=== PATIENT | male | born 1945 | race Caucasian/White ===

== ENCOUNTER 2018-01-23 09:39 | Emergency (ER) | payer MEDICARE, OTHER, SELFPAY ==
[2018-01-23 10:00] VITALS: BP 168/90; PULSE 80; RESP 13; TEMP 36.2; O2SAT 99
--- NOTE | 2018-01-23 12:20 | ED.BACK ---
HPI - Back Pain/Injury <JUVE Quezada - Last Filed: 01/23/18 19:48> General Chief Complaint: Skin/Abscess/Foreign Body Stated Complaint: LUMP AND PAIN OVER LEFT HIP Time Seen by Provider: 01/23/18 12:05 Source: patient Mode of arrival: ambulatory History of Present Illness HPI Narrative: Patient presents with left back and hip pain. He states has been going on for several days. He has taken occasional ibuprofen for it. He took 2 Tylenol 3 for it. He states that he has a broken his ???entire back from his neck all the way down??? and has chronic back pain. However this pain is centralized over his lower back on his left side, which she states is new for him. He also complains of left shoulder pain, but that is not his chief complaint today. He denies any fevers, numbness, tingling, incontinence, saddle anesthesia. He states his pain radiates down to his bottom. Denies any other radiation. Took a lyrica this morning. Denies any urinary symptoms including dysuria, urgency, frequency. He denies fevers. Patient's thought process is noted to be disorganized and thus a difficult historian. He even complains of concern for his heart given back pain. He has history of bypass. He denies any chest pain, shortness of breath, palpitations or swelling. States he is most concerned about a bump on his left hip. Related Data Home Medications Medication Instructions Recorded Confirmed carvedilol [Coreg] 6.25 mg PO BID #60 tab 04/18/16 01/23/18 rosuvastatin [Crestor] 1 tab PO DAILY #0 04/18/16 01/23/18 insulin aspart U-100 [Novolog 1 dose CONTINUOUS SUBCUTANEOUS 01/23/18 01/23/18 U-100 Insulin aspart] INFUSION DIRECTED MDD 100 units losartan 1 tab PO DAILY 01/23/18 01/23/18 mometasone 1 applic TOPICAL DIRECTED 01/23/18 01/23/18 Previous Rx's Medication Instructions Recorded methocarbamol [Robaxin] 500 mg PO Q6H PRN #20 tab NS 01/23/18 Allergies Allergy/AdvReac Type Severity Reaction Status Date / Time No Known Drug Allergies Allergy Verified 01/23/18 13:44 Review of Systems <JUVE Quezada - Last Filed: 01/23/18 19:48> Review of Systems GENERAL: See HPI HEENT: Denies sinus pain, ear pain, sore throat, difficulty swallowing, dizziness. RESPIRATORY: Denies dyspnea, cough, wheezing, hemoptysis, sputum. CARDIOVASCULAR: See HPI GASTROINTESTINAL: Denies nausea, vomiting, abdominal pain, diarrhea, constipation, melena. : Denies dysuria, frequency, incontinence, hematuria, urinary retention. MUSCULOSKELETAL: See HPI SKIN: Denies rash, skin lesions, or other NEUROLOGIC: See HPI PSYCHIATRIC: No concerning psychosocial issues. 12 point review of systems is negative except for those stated above Exam <Holli Montanez [facility]- - Last Filed: 01/23/18 19:48> Narrative Exam Narrative: GENERAL: This is a well-nourished, well-developed patient, no distress sitting on exam table. HEAD: Atraumatic. Normocephalic. No temporal or scalp tenderness. EYES: Pupils equal round and reactive. Extraocular motions intact. No scleral icterus. No injection or drainage. ENT: Nose without bleeding, purulent drainage or septal hematoma. Throat without erythema, tonsillar hypertrophy or exudate. Uvula midline. Airway patent. NECK: Trachea midline. No JVD or lymphadenopathy. Supple, nontender, no meningeal signs. CARDIOVASCULAR: Regular rate and rhythm without murmurs, gallops, or rubs. RESPIRATORY: Clear to auscultation. Breath sounds equal bilaterally. No wheezes, rales, or rhonchi. GASTROINTESTINAL: Abdomen soft, non-tender, nondistended. No hepato-splenomegaly, or palpable masses. No guarding. EXTREMITIES: No clubbing, cyanosis, or edema. No joint tenderness, effusion, or edema noted. Strength equal upper and lower extremities bilaterally. Radial reflexes intact, patellar reflexes intact. BACK: No C-spine or spinal pain to palpation. No step-offs or deformities palpated. Some pain on palpation of left paraspinal muscles in the lumbar region. No palpable deformity to back or pelvis. NEURO: AOx3. SKIN: No rash or erythema. No erythema ecchymosis or rash on back or pelvis. Initial Vital Signs Initial Vital Signs: Vital Signs Temperature 97.1 F L 01/23/18 10:00 Pulse Rate 80 01/23/18 10:00 Respiratory Rate 13 01/23/18 10:00 Blood Pressure 168/90 H 01/23/18 10:00 Pulse Oximetry 99 01/23/18 10:00 <Shelia Gonzales DO - Last Filed: 01/24/18 07:25> Initial Vital Signs Initial Vital Signs: Vital Signs Temperature 97.1 F L 01/23/18 10:00 Pulse Rate 80 01/23/18 10:00 Respiratory Rate 13 01/23/18 10:00 Blood Pressure 168/90 H 01/23/18 10:00 Pulse Oximetry 99 01/23/18 10:00 Course <[facility] - Last Filed: 01/23/18 19:48> Hospital Course: Patient presents complaining of back and hip pain on left side. He is concerned about a bump that he felt on his left hip. An EKG was done due to his history of ACS and his back pain. He came back within normal limits. Imaging was taken of his lumbar spine and his pelvis. No acute fracture was found. He was medicated for pain with Toradol and with Robaxin. He had no questions or concerns upon discharge. Discussed at length with patient return precautions of numbness, tingling, saddle anesthesia or incontinence. Orders Ordered: Discontinued Medications Ketorolac Tromethamine (Toradol) 30 mg IM NOW ONE Stop: 01/23/18 13:35 Last Admin: 01/23/18 13:46 Dose: 30 mg Methocarbamol (Robaxin) 750 mg PO NOW ONE Stop: 01/23/18 13:35 Last Admin: 01/23/18 13:48 Dose: Not Given Methocarbamol (Robaxin) 750 mg PO NOW ONE Stop: 01/23/18 13:46 Last Admin: 01/23/18 13:47 Dose: 750 mg Vital Signs - 8 hr 01/23/18 14:14 Pulse Rate 80 Respiratory Rate 18 Blood Pressure 154/95 H Pulse Oximetry 98 <Shelia Gonzales DO - Last Filed: 01/24/18 07:25> Orders Ordered: Discontinued Medications Ketorolac Tromethamine (Toradol) 30 mg IM NOW ONE Stop: 01/23/18 13:35 Last Admin: 01/23/18 13:46 Dose: 30 mg Methocarbamol (Robaxin) 750 mg PO NOW ONE Stop: 01/23/18 13:35 Last Admin: 01/23/18 13:48 Dose: Not Given Methocarbamol (Robaxin) 750 mg PO NOW ONE Stop: 01/23/18 13:46 Last Admin: 01/23/18 13:47 Dose: 750 mg Vital Signs - 8 hr 01/23/18 14:14 Pulse Rate 80 Respiratory Rate 18 Blood Pressure 154/95 H Pulse Oximetry 98 MDM - Back Pain/Injury <JUVE Quezada - Last Filed: 01/23/18 19:48> Imaging Data lumbar xray: Radiologist's impression: [address] [address] XRay Report Signed Patient: Darren iSlver MR#: [id number] : 1945 Acct:[id number] Age/Sex: 72 / M Date of Service: 01/23/18 Loc: ED Accession Number: [id number] Procedure: XR lumbar spine 2-3V Ordering Provider: Holli Montanez PROCEDURE: XR LUMBAR SPINE 2-3V INDICATIONS: 72-year-old male with low back pain on palpation. TECHNIQUE: 3 views of the lumbar spine were acquired. COMPARISON: [facility], CT, ABDOMEN/PELVIS WITH CONTRAST, 04/18/2016, 15:01. FINDINGS: Bones: 5 [id number] vertebrae are present. There is lower lumbar spine levoscoliosis. Nonacute T12 anterior wedge compression fracture is unchanged, with up to 73% height loss. No new vertebral body compression fractures. There is lower lumbar spine disc and facet joint degeneration. No suspicious bony lesions. Soft tissues: Overlying bowel gas pattern is normal. No suspicious soft tissue calcifications. There is moderate aortoiliac atherosclerosis. IMPRESSION: 1. Nonacute T12 anterior wedge compression fracture is unchanged since 2016, with severe height loss. 2. Lower lumbar spine disc and facet joint degeneration. Dictated by: Terry Stanton M.D. on 01/23/2018 at 13:10 Approved by: Terry Stanton M.D. on 01/23/2018 at 13:13 pelvis xray : Radiologist's impression: [address] [address] XRay Report Signed Patient: Darren Silver MR#: [id number] : 1945 Acct:[id number] Age/Sex: 72 / M Date of Service: 01/23/18 Loc: ED Accession Number: [id number] Procedure: XR pelvis 1-2V Ordering Provider: Holli Montanez PROCEDURE: XR PELVIS 1-2V INDICATIONS: 72 year-old male with left pelvic pain on palpation. TECHNIQUE: One view(s) of the pelvis acquired. COMPARISON: None. FINDINGS: Bones: No fractures or dislocations. No suspicious bony lesions. There is lower lumbar spine disc degeneration. No hip joint degeneration. Soft tissues: Right inguinal region surgical clips are present. Visualized bowel gas pattern is normal. No suspicious soft tissue calcifications. There is bilateral femoral atherosclerosis. IMPRESSION: No acute bony injuries of the pelvic ring. Dictated by: Terry Stanton M.D. on 01/23/2018 at 13:09 Approved by: Terry Stanton M.D. on 01/23/2018 at 13:10 ECG Data Attestation: I personally reviewed and interpreted this ECG as follows: Interpretation: Sinus rhythm. Heart rate 67. MD 205. No ST abnormalities. MDM Narrative Medical decision making narrative: Patient presented with back pain and concern of a bump on the back of his pelvis. His EKG was done in order to rule out ACS given his history and back pain. Came back within normal limits. He had normal x-rays of his lumbar spine as well as his pelvis. He did not complain of chest pain shortness of breath, fever. He was medicated with Robaxin as well as Toradol in the emergency department. I gave him a prescription of Robaxin. He had no questions or concerns upon discharge. I discussed at length with patient return precautions for numbness, tingling, weakness, incontinence, saddle anesthesia. <Shelia Gonzales, - Last Filed: 01/24/18 07:25> ECG Data Attestation: I personally reviewed and interpreted this ECG as follows: Prior ECG tracings: not available for review Interpretation: Normal sinus rhythm rate [address] changes no priors to compare Q-waves noted in lead 3 and AVF nonpathologic Discharge Plan Departure Patient Disposition: Home, Self-Care Clinical Impression: Back pain Discharge Date/Time: 01/23/18 14:15 Interventions: ED Discharge Assessment Last Done: 01/23/18 14:14 Instructions: DI for Low Back Pain, Activity May Be Better then Rest for Low Back Pain Recovery, DI for Thoracic Back Pain Activity Restrictions/Additional Instructions: We have given you medication for your back pain. I want you to continue conservative measures including ice, heat, rest, [id number]-[id number] medications as able. Please do not take ibuprofen for 6-8 hours after the pain injection that we gave you here in the emergency department. I would like you to follow up with your primary care provider. Come back to the emergency department for any new numbness, tingling, incontinence or saddle anesthesia out which is numbness where you sit on a horse. Please remember that we also gave you a muscle relaxer here in the emergency department, so please do not take your prescription too soon. Prescriptions: New methocarbamol [Robaxin] 500 mg tablet 500 mg PO Q6H PRN (Reason: muscle spasm ) Qty: 20 RF: 0 No Action carvedilol [Coreg] 6.25 MG tablet 6.25 mg PO BID Qty: 60 RF: 0 rosuvastatin [Crestor] 40 mg Tablet 1 tab PO DAILY Qty: 0 RF: 0 insulin aspart U-100 [Novolog U-100 Insulin aspart] 100 unit/mL solution 1 dose Continuous Subcutaneous Infusion DIRECTED MDD 100 units RF: 0 losartan 25 mg tablet 1 tab PO DAILY RF: 0 mometasone 0.1 % cream 1 applic Topical DIRECTED RF: 0 <Shelia Gonzales DO - Last Filed: 01/24/18 07:25> [facility]abil Attestation: I was immediately available in the department for consultation. Documentation has been reviewed. I agree with assessment and plan.
--- NOTE | 2018-01-23 12:23 | ED_ITS ---
HPI - Back Pain/Injury <JUVE Quezada - Last Filed: 01/23/18 19:48> General Chief Complaint: Skin/Abscess/Foreign Body Stated Complaint: LUMP AND PAIN OVER LEFT HIP Time Seen by Provider: 01/23/18 12:05 Source: patient Mode of arrival: ambulatory History of Present Illness HPI Narrative: Patient presents with left back and hip pain. He states has been going on for several days. He has taken occasional ibuprofen for it. He took 2 Tylenol 3 for it. He states that he has a broken his ?entire back from his neck all the way down? and has chronic back pain. However this pain is centralized over his lower back on his left side, which she states is new for him. He also complains of left shoulder pain, but that is not his chief complaint today. He denies any fevers, numbness, tingling, incontinence, saddle anesthesia. He states his pain radiates down to his bottom. Denies any other radiation. Took a lyrica this morning. Denies any urinary symptoms including dysuria, urgency, frequency. He denies fevers. Patient's thought process is noted to be disorganized and thus a difficult historian. He even complains of concern for his heart given back pain. He has history of bypass. He denies any chest pain, shortness of breath, palpitations or swelling. States he is most concerned about a bump on his left hip. Related Data Home Medications Medication Instructions Recorded Confirmed carvedilol [Coreg] 6.25 mg PO BID #60 tab 04/18/16 01/23/18 rosuvastatin [Crestor] 1 tab PO DAILY #0 04/18/16 01/23/18 insulin aspart U-100 [Novolog 1 dose CONTINUOUS SUBCUTANEOUS 01/23/18 01/23/18 U-100 Insulin aspart] INFUSION DIRECTED MDD 100 units losartan 1 tab PO DAILY 01/23/18 01/23/18 mometasone 1 applic TOPICAL DIRECTED 01/23/18 01/23/18 Previous Rx's Medication Instructions Recorded methocarbamol [Robaxin] 500 mg PO Q6H PRN #20 tab NS 01/23/18 Allergies Allergy/AdvReac Type Severity Reaction Status Date / Time No Known Drug Allergies Allergy Verified 01/23/18 13:44 Review of Systems <JUVE Quezada - Last Filed: 01/23/18 19:48> Review of Systems GENERAL: See HPI HEENT: Denies sinus pain, ear pain, sore throat, difficulty swallowing, dizziness. RESPIRATORY: Denies dyspnea, cough, wheezing, hemoptysis, sputum. CARDIOVASCULAR: See HPI GASTROINTESTINAL: Denies nausea, vomiting, abdominal pain, diarrhea, constipation, melena. : Denies dysuria, frequency, incontinence, hematuria, urinary retention. MUSCULOSKELETAL: See HPI SKIN: Denies rash, skin lesions, or other NEUROLOGIC: See HPI PSYCHIATRIC: No concerning psychosocial issues. 12 point review of systems is negative except for those stated above Exam <Holli Montanez, [facility] - Last Filed: 01/23/18 19:48> Narrative Exam Narrative: GENERAL: This is a well-nourished, well-developed patient, no distress sitting on exam table. HEAD: Atraumatic. Normocephalic. No temporal or scalp tenderness. EYES: Pupils equal round and reactive. Extraocular motions intact. No scleral icterus. No injection or drainage. ENT: Nose without bleeding, purulent drainage or septal hematoma. Throat without erythema, tonsillar hypertrophy or exudate. Uvula midline. Airway patent. NECK: Trachea midline. No JVD or lymphadenopathy. Supple, nontender, no meningeal signs. CARDIOVASCULAR: Regular rate and rhythm without murmurs, gallops, or rubs. RESPIRATORY: Clear to auscultation. Breath sounds equal bilaterally. No wheezes , rales, or rhonchi. GASTROINTESTINAL: Abdomen soft, non-tender, nondistended. No hepato-splenomegaly , or palpable masses. No guarding. EXTREMITIES: No clubbing, cyanosis, or edema. No joint tenderness, effusion, or edema noted. Strength equal upper and lower extremities bilaterally. Radial reflexes intact, patellar reflexes intact. BACK: No C-spine or spinal pain to palpation. No step-offs or deformities palpated. Some pain on palpation of left paraspinal muscles in the lumbar region. No palpable deformity to back or pelvis. NEURO: AOx3. SKIN: No rash or erythema. No erythema ecchymosis or rash on back or pelvis. Initial Vital Signs Initial Vital Signs: Vital Signs Temperature 97.1 F L 01/23/18 10:00 Pulse Rate 80 01/23/18 10:00 Respiratory Rate 13 01/23/18 10:00 Blood Pressure 168/90 H 01/23/18 10:00 Pulse Oximetry 99 01/23/18 10:00 <Shelia Gonzales DO - Last Filed: 01/24/18 07:25> Initial Vital Signs Initial Vital Signs: Vital Signs Temperature 97.1 F L 01/23/18 10:00 Pulse Rate 80 01/23/18 10:00 Respiratory Rate 13 01/23/18 10:00 Blood Pressure 168/90 H 01/23/18 10:00 Pulse Oximetry 99 01/23/18 10:00 Course <Holli [place] Montanez-[facility] - Last Filed: 01/23/18 19:48> Hospital Course: Patient presents complaining of back and hip pain on left side. He is concerned about a bump that he felt on his left hip. An EKG was done due to his history of ACS and his back pain. He came back within normal limits. Imaging was taken of his lumbar spine and his pelvis. No acute fracture was found. He was medicated for pain with Toradol and with Robaxin. He had no questions or concerns upon discharge. Discussed at length with patient return precautions of numbness, tingling, saddle anesthesia or incontinence. Orders Ordered: Discontinued Medications Ketorolac Tromethamine (Toradol) 30 mg IM NOW ONE Stop: 01/23/18 13:35 Last Admin: 01/23/18 13:46 Dose: 30 mg Methocarbamol (Robaxin) 750 mg PO NOW ONE Stop: 01/23/18 13:35 Last Admin: 01/23/18 13:48 Dose: Not Given Methocarbamol (Robaxin) 750 mg PO NOW ONE Stop: 01/23/18 13:46 Last Admin: 01/23/18 13:47 Dose: 750 mg Vital Signs - 8 hr 01/23/18 14:14 Pulse Rate 80 Respiratory Rate 18 Blood Pressure 154/95 H Pulse Oximetry 98 <Shelia Gonzales DO - Last Filed: 01/24/18 07:25> Orders Ordered: Discontinued Medications Ketorolac Tromethamine (Toradol) 30 mg IM NOW ONE Stop: 01/23/18 13:35 Last Admin: 01/23/18 13:46 Dose: 30 mg Methocarbamol (Robaxin) 750 mg PO NOW ONE Stop: 01/23/18 13:35 Last Admin: 01/23/18 13:48 Dose: Not Given Methocarbamol (Robaxin) 750 mg PO NOW ONE Stop: 01/23/18 13:46 Last Admin: 01/23/18 13:47 Dose: 750 mg Vital Signs - 8 hr 01/23/18 14:14 Pulse Rate 80 Respiratory Rate 18 Blood Pressure 154/95 H Pulse Oximetry 98 MDM - Back Pain/Injury <JUVE Quezada - Last Filed: 01/23/18 19:48> Imaging Data lumbar xray: Radiologist's impression: [address] [address] XRay Report Signed Patient: Darren Silver MR#: [id number] : 1945 Acct:[id number] Age/Sex: 72 / M Date of Service: 01/23/18 Loc: ED Accession Number: [id number] Procedure: XR lumbar spine 2-3V Ordering Provider: Holli Montanez PROCEDURE: XR LUMBAR SPINE 2-3V INDICATIONS: 72-year-old male with low back pain on palpation. TECHNIQUE: 3 views of the lumbar spine were acquired. COMPARISON: [facility], CT, ABDOMEN/PELVIS WITH CONTRAST, 04/18/2016, 15: 01. FINDINGS: Bones: 5 [id number]-[id number] vertebrae are present. There is lower lumbar spine levoscoliosis. Nonacute T12 anterior wedge compression fracture is unchanged, with up to 73% height loss. No new vertebral body compression fractures. There is lower lumbar spine disc and facet joint degeneration. No suspicious bony lesions. Soft tissues: Overlying bowel gas pattern is normal. No suspicious soft tissue calcifications. There is moderate aortoiliac atherosclerosis. IMPRESSION: 1. Nonacute T12 anterior wedge compression fracture is unchanged since 2016, with severe height loss. 2. Lower lumbar spine disc and facet joint degeneration. Dictated by: Terry Stanton M.D. on 01/23/2018 at 13:10 Approved by: Terry Stanton M.D. on 01/23/2018 at 13:13 pelvis xray : Radiologist's impression: [address] [address] XRay Report Signed Patient: Darren Silver MR#: [id number] : 1945 Acct:[id number] Age/Sex: 72 / M Date of Service: 01/23/18 Loc: ED Accession Number: [id number] Procedure: XR pelvis 1-2V Ordering Provider: Holli Montanez PROCEDURE: XR PELVIS 1-2V INDICATIONS: 72 year-old male with left pelvic pain on palpation. TECHNIQUE: One view(s) of the pelvis acquired. COMPARISON: None. FINDINGS: Bones: No fractures or dislocations. No suspicious bony lesions. There is lower lumbar spine disc degeneration. No hip joint degeneration. Soft tissues: Right inguinal region surgical clips are present. Visualized bowel gas pattern is normal. No suspicious soft tissue calcifications. There is bilateral femoral atherosclerosis. IMPRESSION: No acute bony injuries of the pelvic ring. Dictated by: Terry Stanton M.D. on 01/23/2018 at 13:09 Approved by: Terry Stanton M.D. on 01/23/2018 at 13:10 ECG Data Attestation: I personally reviewed and interpreted this ECG as follows: Interpretation: Sinus rhythm. Heart rate 67. [place] 205. No ST abnormalities. MDM Narrative Medical decision making narrative: Patient presented with back pain and concern of a bump on the back of his pelvis. His EKG was done in order to rule out ACS given his history and back pain. Came back within normal limits. He had normal x -rays of his lumbar spine as well as his pelvis. He did not complain of chest pain shortness of breath, fever. He was medicated with Robaxin as well as Toradol in the emergency department. I gave him a prescription of Robaxin. He had no questions or concerns upon discharge. I discussed at length with patient return precautions for numbness, tingling, weakness, incontinence, saddle anesthesia. <Shelia Gonzales, DO - Last Filed: 01/24/18 07:25> ECG Data Attestation: I personally reviewed and interpreted this ECG as follows: Prior ECG tracings: not available for review Interpretation: Normal sinus rhythm rate [address] changes no priors to compare Q-waves noted in lead 3 and AVF nonpathologic Discharge Plan Departure Patient Disposition: Home, Self-Care Clinical Impression: Back pain Discharge Date/Time: 01/23/18 14:15 Interventions: ED Discharge Assessment Last Done: 01/23/18 14:14 Instructions: DI for Low Back Pain, Activity May Be Better then Rest for Low Back Pain Recovery, DI for Thoracic Back Pain Activity Restrictions/Additional Instructions: We have given you medication for your back pain. I want you to continue conservative measures including ice, heat, rest, msgs-hgb-cutzvkp medications as able. Please do not take ibuprofen for 6-8 hours after the pain injection that we gave you here in the emergency department. I would like you to follow up with your primary care provider. Come back to the emergency department for any new numbness, tingling, incontinence or saddle anesthesia out which is numbness where you sit on a horse. Please remember that we also gave you a muscle relaxer here in the emergency department, so please do not take your prescription too soon. Prescriptions: New methocarbamol [Robaxin] 500 mg tablet 500 mg PO Q6H PRN (Reason: muscle spasm ) Qty: 20 RF: 0 No Action carvedilol [Coreg] 6.25 MG tablet 6.25 mg PO BID Qty: 60 RF: 0 rosuvastatin [Crestor] 40 mg Tablet 1 tab PO DAILY Qty: 0 RF: 0 insulin aspart U-100 [Novolog U-100 Insulin aspart] 100 unit/mL solution 1 dose Continuous Subcutaneous Infusion DIRECTED MDD 100 units RF: 0 losartan 25 mg tablet 1 tab PO DAILY RF: 0 mometasone 0.1 % cream 1 applic Topical DIRECTED RF: 0 <Shelia Gonzales DO - Last Filed: 01/24/18 07:25> [facility] Nabil Attestation: I was immediately available in the department for consultation. Documentation has been reviewed. I agree with assessment and plan.
[2018-01-23] MEDS: KETOROLAC 60 MG/2 ML VIAL 30 MG IM (13:46)
[2018-01-23] MEDS: METHOCARBAMOL 500 MG TABLET 750 MG PO (13:47)
[2018-01-23 14:14] VITALS: BP 154/95; PULSE 80; RESP 18; O2SAT 98
== END 2018-01-23 14:15 | disposition home or self-care (01) ==
PROVIDERS: Emergency Provider Nurse Practitioner Family; Family Provider Family Medicine; PCP Family Medicine
DX: M54.9 Dorsalgia, unspecified (principal); Z86.79 Personal history of other diseases of the circulatory system
CPT/HCPCS: 72100; 72170; 81003; 93005; 96372; 99282; 99285; J1885

== ENCOUNTER 2018-01-24 15:44 | Emergency (ER) | payer MEDICARE, OTHER, SELFPAY ==
[2018-01-24 16:16] VITALS: BP 140/85; PULSE 76; RESP 18; TEMP 37.1; O2SAT 99; BMI 28.8
--- NOTE | 2018-01-24 16:17 | ED.MALEGU ---
HPI - Male Genitourinary <JEREMIAS Bauer - Last Filed: 01/24/18 22:33> General Chief complaint: Urogenital-Male Stated complaint: left side lower back pain Time Seen by Provider: 01/24/18 16:17 History of Present Illness HPI Narrative: 72-year-old male here for complaint of pain into his left back area. He reports he has had this pain for the last 4 days. He was seen in the emergency room yesterday and had x-rays of his lower back and pelvis area and was negative for any acute findings. His pain has been to bilateral sides over the past few days. He was prescribed Robaxin and states that it helped limit the pain to his left side however he still having pain there. He denies any urinary symptoms. No fevers no chills. No nausea or vomiting. He denies any blood in his urine. He does state that he has a history of having kidney stones in the past. Related Data Home Medications Medication Instructions Recorded Confirmed carvedilol [Coreg] 6.25 mg PO BID #60 tab 04/18/16 01/24/18 losartan 1 tab PO DAILY 01/23/18 01/24/18 insulin aspart U-100 [Novolog 1 dose CONTINUOUS SUBCUTANEOUS 01/24/18 01/24/18 U-100 Insulin aspart] INFUSION DIRECTED MDD 100 units mometasone 1 applic TOPICAL DAILY PRN 01/24/18 01/24/18 rosuvastatin 20 mg PO DAILY 01/24/18 01/24/18 Previous Rx's Medication Instructions Recorded methocarbamol [Robaxin] 500 mg PO Q6H PRN #20 tab NS 01/23/18 Allergies Allergy/AdvReac Type Severity Reaction Status Date / Time No Known Drug Allergies Allergy Verified 01/23/18 13:44 Review of Systems <JEREMIAS Bauer - Last Filed: 01/24/18 22:33> Constitutional Denies chills, Denies fever(s), Denies lethargy and Denies weakness Eyes Denies change in vision, Denies eye discharge, Denies irritation and Denies loss of vision ENT Ears, Nose, Mouth, and Throat: Denies change in voice, Denies neck pain and Denies sore throat Cardiovascular Denies chest pain, Denies irregular heart rhythm, Denies lightheadedness, Denies palpitations, Denies dyspnea, Denies dyspnea on exertion and Denies orthopnea Respiratory Denies cough, Denies dyspnea, Denies dyspnea on exertion and Denies wheezing Gastrointestinal Gastrointestinal: Denies abdominal pain, Denies change in bowel habits, Denies diarrhea, Denies nausea and Denies vomiting Musculoskeletal Reports back pain and Denies neck pain Integumentary/Breasts Denies pruritus, Denies erythema, Denies rash and Denies wounds Neurologic Denies confusion, Denies loss of vision and Denies weakness Psychiatric Denies anxiety, Denies confusion, Denies depression, Denies homicidal ideation and Denies suicidal ideation Endocrine Denies palpitations Hematologic/Lymphatic Denies easy bruising Allergic/Immunologic Denies wheezing Exam <JEREMIAS Bauer - Last Filed: 01/24/18 22:33> Initial Vital Signs Initial Vital Signs: Vital Signs Temperature 98.7 F 01/24/18 16:16 Pulse Rate 76 01/24/18 16:16 Respiratory Rate 18 01/24/18 16:16 Blood Pressure 140/85 H 01/24/18 16:16 Pulse Oximetry 99 01/24/18 16:16 Const General: cooperative and well developed Nutritional Appearance: well nourished Orientation: alert, awake, oriented x3 and not confused HENOK Mouth: oral mucosae normal and moist mucous membranes Eyes Conjunctivae: conjunctivae normal Sclera: sclerae normal Pupils: PERRL EOM: EOM intact bilaterally Neck Neck: normal visual inspection, trachea midline, No lymphadenopathy, No midline deformity and No JVD Lymphatic: No lymphedema Resp Effort & Inspection: normal respiratory effort, able to speak in complete sentences, no respiratory distress and no use of accessory muscles Auscultation: clear to auscultation bilaterally, no rales, no rhonchi and no wheezes Cardio Rate: regular rate Rhythm: regular rhythm Heart Sounds: no click, no gallops, no murmurs and no rubs Back/Spine/Pelvis Thoracic/Lumbar Spine: paraspinal tenderness and No straight leg raise positive Skin General: no rashes or lesions noted, No jaundice and No petechiae <Simón Rose DO - Last Filed: 01/24/18 22:48> Initial Vital Signs Initial Vital Signs: Vital Signs Temperature 98.7 F 01/24/18 16:16 Pulse Rate 76 01/24/18 16:16 Respiratory Rate 18 01/24/18 16:16 Blood Pressure 140/85 H 01/24/18 16:16 Pulse Oximetry 99 01/24/18 16:16 Course <JEREMIAS Bauer - Last Filed: 01/24/18 22:33> Orders Ordered: ED Orders 01/24/18 16:45 Urine Culture Stat Urine Microscopic Stat 01/24/18 16:47 CT kidney ureter bladder (KUB) Stat 01/24/18 17:00 Complete Blood Count AUTO DIFF Stat Comprehensive Metabolic Panel Stat Discontinued Medications Ketorolac Tromethamine (Toradol) 30 mg IV NOW ONE Stop: 01/24/18 16:47 Last Admin: 01/24/18 17:04 Dose: 30 mg Vital Signs - 8 hr 01/24/18 16:16 01/24/18 17:43 01/24/18 18:56 Temperature 98.7 F Pulse Rate 76 77 78 Respiratory Rate 18 17 17 Blood Pressure 140/85 H Blood Pressure [Left Arm] 142/83 H 151/99 H Pulse Oximetry 99 99 99 <Simón Rose DO - Last Filed: 01/24/18 22:48> Orders Ordered: ED Orders 01/24/18 16:45 Urine Culture Stat Urine Microscopic Stat 01/24/18 16:47 CT kidney ureter bladder (KUB) Stat 01/24/18 17:00 Complete Blood Count AUTO DIFF Stat Comprehensive Metabolic Panel Stat Discontinued Medications Ketorolac Tromethamine (Toradol) 30 mg IV NOW ONE Stop: 01/24/18 16:47 Last Admin: 01/24/18 17:04 Dose: 30 mg Vital Signs - 8 hr 01/24/18 16:16 01/24/18 17:43 01/24/18 18:56 Temperature 98.7 F Pulse Rate 76 77 78 Respiratory Rate 18 17 17 Blood Pressure 140/85 H Blood Pressure [Left Arm] 142/83 H 151/99 H Pulse Oximetry 99 99 99 MDM - Male Genitourinary <JEREMIAS Bauer - Last Filed: 01/24/18 22:33> Lab Data Result diagrams: 01/24/18 17:00 01/24/18 17:00 Lab Results 01/24/18 01/24/18 01/24/18 Range/Units 16:45 17:00 17:00 WBC 9.0 (4.5-11.0) X10^3/uL RBC 5.57 (4.5-5.9) X10^6/uL Hgb 16.1 (13.5-17.5) g/dL Hct 46.6 (41-53) % MCV 83.6 (80-100) fL MCH 28.8 (26-34) PG MCHC 34.5 (30-36) % RDW 13.7 (11.6-14.8) % Plt Count 233 (150-400) X10^3/uL Neut % (Auto) 54.8 (50-75) % Lymph % (Auto) 35.2 (25-40) % [place] % (Auto) 6.3 (3-14) % Eos % (Auto) 3.4 (2-4) % Baso % (Auto) 0.3 (0-2) % Neut # (Auto) 4900 (6935-7751) /uL Sodium 140 (137-145) mmol/L Potassium 4.1 (3.4-5.1) mmol/L Chloride 102 (98-107) mmol/L Carbon Dioxide 26 (22-32) mmol/L BUN 17 (9-20) mg/dL Creatinine 0.70 (0.66-1.25) mg/dL Estimated GFR > 60.0 (>60) mL/min BUN/Creatinine Ratio 24.3 H (6-22) Glucose 127 H (80-110) mg/dL Calcium 9.4 (8.4-10.2) mg/dL Total Bilirubin 1.0 (0.2-1.3) mg/dL AST 66 H (17-59) IU/L ALT 82 H (21-72) IU/L Alkaline Phosphatase 108 (38-126) U/L Total Protein 7.6 (6.3-8.2) g/dL Albumin 4.4 (3.5-5.0) g/dL Globulin 3.2 (1.7-4.1) g/dL Albumin/Globulin Ratio 1.4 (1.0-2.8) Urine RBC 0-1/hpf (0-5/HPF) Urine WBC 0-1/hpf (0-5/HPF) Ur Squamous Epith Cells 0-1 /hpf Urine Bacteria None seen (None) Ur Culture Indicated? Specimen cultured Micro UA Comment Not Reportable Imaging Data CT scan - abdomen: Radiologist's impression: PROCEDURE: CT KIDNEY URETER BLADDER (KUB) INDICATIONS: left flank pain TECHNIQUE: Noncontrast 5 mm thick sections acquired from the diaphragms to the symphysis. 5 mm thick coronal and sagittal reformats were then performed. For radiation dose reduction, the following was used: automated exposure control, adjustment of mA and/or kV according to patient size. COMPARISON: [facility], CT, ABDOMEN/PELVIS WITH CONTRAST, 04/18/2016, 15:01. FINDINGS: Image quality: Excellent. Lung bases: Lung bases are clear. Heart size is normal. Urinary system: Both kidneys are normal in size. No kidney stones. No hydronephrosis or perinephric fat stranding. Both ureters appear non-dilated throughout their expected courses. Bladder wall thickness is normal; no calcified bladder stones. Other solid organs: Liver is normal in size. Gallbladder is surgically absent. Pancreas is atrophic. Spleen is normal in size. No adrenal nodules. Peritoneum and bowel: Unenhanced bowel loops demonstrate normal wall thickness and caliber. The appendix is thin walled and gas filled. No free fluid or air. Nodes and vessels: No retroperitoneal or mesenteric adenopathy by size criteria. Aorta and inferior vena cava are normal in caliber. There are scattered atheromatous calcifications throughout the aorta and iliac arteries bilaterally. Abdominal wall: No ventral hernias. Pelvis: No free pelvic fluid. No inguinal hernias or adenopathy. Bones: No suspicious bony lesions. Severe wedge compression deformity at T12 is redemonstrated unchanged when compared with the study dated 04/18/16. Severe degenerative change is present throughout the lumbar spine. IMPRESSION: 1. No nephrolithiasis, hydronephrosis, hydroureter, or ureterolithiasis. 2. No acute intra-abdominal findings. Normal appendix. Dictated by: Jeanne Hanley M.D. on 01/24/2018 at 17:09 Approved by: Jeanne Hanley M.D. on 01/24/2018 at 17:17 MDM Narrative Medical decision making narrative: CBC Chem panel were obtained were unremarkable. Urinalysis was negative for red blood cells or UTI. KUB CT was obtained was negative for any acute findings. Signs and symptoms continue to present as muscle strain into the lumbar region. Continue take Robaxin as prescribed. Also use [id number] ibuprofen. Follow up with primary care provider for re-evaluation. For any worsening symptoms return to the emergency room. <Simón Rose, DO - Last Filed: 01/24/18 22:48> Lab Data Lab Results 01/24/18 01/24/18 01/24/18 Range/Units 16:45 17:00 17:00 WBC 9.0 (4.5-11.0) X10^3/uL RBC 5.57 (4.5-5.9) X10^6/uL Hgb 16.1 (13.5-17.5) g/dL Hct 46.6 (41-53) % MCV 83.6 (80-100) fL MCH 28.8 (26-34) PG MCHC 34.5 (30-36) % RDW 13.7 (11.6-14.8) % Plt Count 233 (150-400) X10^3/uL Neut % (Auto) 54.8 (50-75) % Lymph % (Auto) 35.2 (25-40) % [place] % (Auto) 6.3 (3-14) % Eos % (Auto) 3.4 (2-4) % Baso % (Auto) 0.3 (0-2) % Neut # (Auto) 4900 (4448-2298) /uL Sodium 140 (137-145) mmol/L Potassium 4.1 (3.4-5.1) mmol/L Chloride 102 (98-107) mmol/L Carbon Dioxide 26 (22-32) mmol/L BUN 17 (9-20) mg/dL Creatinine 0.70 (0.66-1.25) mg/dL Estimated GFR > 60.0 (>60) mL/min BUN/Creatinine Ratio 24.3 H (6-22) Glucose 127 H (80-110) mg/dL Calcium 9.4 (8.4-10.2) mg/dL Total Bilirubin 1.0 (0.2-1.3) mg/dL AST 66 H (17-59) IU/L ALT 82 H (21-72) IU/L Alkaline Phosphatase 108 (38-126) U/L Total Protein 7.6 (6.3-8.2) g/dL Albumin 4.4 (3.5-5.0) g/dL Globulin 3.2 (1.7-4.1) g/dL Albumin/Globulin Ratio 1.4 (1.0-2.8) Urine RBC 0-1/hpf (0-5/HPF) Urine WBC 0-1/hpf (0-5/HPF) Ur Squamous Epith Cells 0-1 /hpf Urine Bacteria None seen (None) Ur Culture Indicated? Specimen cultured Micro UA Comment Not Reportable Discharge Plan Departure Patient Disposition: Home, Self-Care Clinical Impression: Back pain Discharge Date/Time: 01/24/18 19:05 Interventions: ED Discharge Assessment Last Done: 01/24/18 19:04 Instructions: DI for Low Back Pain Activity Restrictions/Additional Instructions: CT today was negative for any acute findings. Laboratory results were unremarkable. Urinalysis was negative for urinary tract infection or red blood cells. Signs and symptoms presents as strain of muscle to the lower back area. Continue using the Robaxin as prescribed along with [id number] ibuprofen. Follow up with primary care provider. Return emergency room for any worsening symptoms. Prescriptions: No Action carvedilol [Coreg] 6.25 MG tablet 6.25 mg PO BID Qty: 60 RF: 0 losartan 25 mg tablet 1 tab PO DAILY RF: 0 methocarbamol [Robaxin] 500 mg tablet 500 mg PO Q6H PRN (Reason: muscle spasm ) Qty: 20 RF: 0 insulin aspart U-100 [Novolog U-100 Insulin aspart] 100 unit/mL solution 1 dose Continuous Subcutaneous Infusion DIRECTED MDD 100 units RF: 0 mometasone 0.1 % cream 1 applic Topical DAILY PRN (Reason: Rash) RF: 0 rosuvastatin 20 mg tablet 20 mg PO DAILY RF: 0 Referrals: Carlos Fountain MD [Primary Care Provider] - <Simón Rose DO - Last Filed: 01/24/18 22:48> Cosign ED Attending Carlosature Attestation: I was available for consultation during this patient's emergency department encounter
--- NOTE | 2018-01-24 16:47 | DI.CT.S_ITS ---
PROCEDURE: CT KIDNEY URETER BLADDER (KUB) INDICATIONS: left flank pain TECHNIQUE: Noncontrast 5 mm thick sections acquired from the diaphragms to the symphysis. 5 mm thick coronal and sagittal reformats were then performed. For radiation dose reduction, the following was used: automated exposure control, adjustment of mA and/or kV according to patient size. COMPARISON: [facility], CT, ABDOMEN/PELVIS WITH CONTRAST, 04/18/2016, 15:01. FINDINGS: Image quality: Excellent. Lung bases: Lung bases are clear. Heart size is normal. Urinary system: Both kidneys are normal in size. No kidney stones. No hydronephrosis or perinephric fat stranding. Both ureters appear non-dilated throughout their expected courses. Bladder wall thickness is normal; no calcified bladder stones. Other solid organs: Liver is normal in size. Gallbladder is surgically absent. Pancreas is atrophic. Spleen is normal in size. No adrenal nodules. Peritoneum and bowel: Unenhanced bowel loops demonstrate normal wall thickness and caliber. The appendix is thin walled and gas filled. No free fluid or air. Nodes and vessels: No retroperitoneal or mesenteric adenopathy by size criteria. Aorta and inferior vena cava are normal in caliber. There are scattered atheromatous calcifications throughout the aorta and iliac arteries bilaterally. Abdominal wall: No ventral hernias. Pelvis: No free pelvic fluid. No inguinal hernias or adenopathy. Bones: No suspicious bony lesions. Severe wedge compression deformity at T12 is redemonstrated unchanged when compared with the study dated 04/18/16. Severe degenerative change is present throughout the lumbar spine. IMPRESSION: 1. No nephrolithiasis, hydronephrosis, hydroureter, or ureterolithiasis. 2. No acute intra-abdominal findings. Normal appendix. Dictated by: Jeanne Hanley M.D. on 01/24/2018 at 17:09 Approved by: Jeanne Hanley M.D. on 01/24/2018 at 17:17
--- NOTE | 2018-01-24 16:49 | PC.NURSE ---
PT c/o l flank pain and can pinpoint the spot on his back that he has pain
[2018-01-24 16:56] LABS: Bacteria Urine None Seen
[2018-01-24] MEDS: KETOROLAC 60 MG/2 ML VIAL 30 MG IV (17:04)
[2018-01-24 17:29] LABS: Alanine Aminotransferase 82 IU/L (21-72); Albumin 4.4 g/dL (3.5-5.0); Albumin Globulin Ratio 1.4 (1.0-2.8); Alkaline Phosphatase 108 U/L (38-126); Aspartate Aminotransferase 66 IU/L (17-59); BUN Creatinine Ratio 24.3 (6-22); Blood Urea Nitrogen 17 mg/dL (9-20); Calcium 9.4 mg/dL (8.4-10.2); Carbon Dioxide 26 mmol/L (22-32); Chloride 102 mmol/L (98-107); Estimated Glomerular Filt Rate > 60.0 mL/min (>60); Globulin 3.2 g/dL (1.7-4.1); Glucose 127 mg/dL (80-110); HEMOLYSIS 26 (0-50); Potassium 4.1 mmol/L (3.4-5.1); Sodium 140 mmol/L (137-145); Total Protein 7.6 g/dL (6.3-8.2)
[2018-01-24 17:39] LABS: RBC Urine 0-1/HPF (0-5/HPF)
[2018-01-24 17:40] LABS: Culture Indicated Urine Specimen Cultured; Squamous Epithelial Cell Urine 0-1 /HPF; WBC Urine 0-1/HPF (0-5/HPF)
[2018-01-24 17:43] VITALS: BP 142/83; PULSE 77; RESP 17; O2SAT 99
[2018-01-24 18:02] LABS: Add Manual Diff / Slide Review NO; Basophils Percent Auto 0.3 % (0-2); Eosinophils Percent Auto 3.4 % (2-4); Hematocrit 46.6 % (41-53); Hemoglobin 16.1 g/dL (13.5-17.5); Lymphocytes Percent Auto 35.2 % (25-40); Mean Corpuscular HGB Conc 34.5 % (30-36); Mean Corpuscular Hemoglobin 28.8 PG (26-34); Mean Corpuscular Volume 83.6 fL (80-100); Monocytes Percent Auto 6.3 % (3-14); Neutrophils Absolute Auto 4900 /uL (3000-5900); Neutrophils Percent Auto 54.8 % (50-75); Platelet Count 233 X10^3/uL (150-400); Red Blood Cell Count 5.57 X10^6/uL (4.5-5.9); Red Cell Distribution Width 13.7 % (11.6-14.8)
[2018-01-24 18:56] VITALS: BP 151/99; PULSE 78; RESP 17; O2SAT 99
== END 2018-01-24 19:05 | disposition home or self-care (01) ==
PROVIDERS: Emergency Provider Nurse Practitioner Family; Family Provider Family Medicine; PCP Family Medicine
DX: M54.5 Low back pain (principal)
CPT/HCPCS: 74176; 80053; 81003; 81015; 85025; 87086; 96374; 99282; 99284; J1885

== ENCOUNTER → 2018-06-12 12:41 | Outpatient (CLI) | payer MEDICARE, SELFPAY | PROVIDERS: Family Provider Family Medicine; PCP Family Medicine; Visit Provider Internal Medicine Rheumatology | DX: M81.0 Age-related osteoporosis without current pathological fracture (principal); E11.9 Type 2 diabetes mellitus without complications; Z87.891 Personal history of nicotine dependence | CPT/HCPCS: 77080 ==

== ENCOUNTER → 2019-07-02 12:55 | Outpatient (CLI) | payer MEDICARE, OTHER, SELFPAY | PROVIDERS: Family Provider Family Medicine; PCP Family Medicine; Visit Provider Internal Medicine Rheumatology | DX: M81.0 Age-related osteoporosis without current pathological fracture (principal); E11.9 Type 2 diabetes mellitus without complications; Z87.891 Personal history of nicotine dependence | CPT/HCPCS: 77080 ==

== ENCOUNTER → 2022-10-11 10:01 | Outpatient (CLI) | payer MEDICARE, OTHER, SELFPAY | PROVIDERS: Family Provider Family Medicine; PCP Family Medicine; Referring Provider Physician Assistant; Visit Provider Physician Assistant | DX: M81.0 Age-related osteoporosis without current pathological fracture (principal) | CPT/HCPCS: 77080 ==

== ENCOUNTER → 2023-03-29 17:13 | Outpatient (CLI) | payer MEDICARE, OTHER, SELFPAY | PROVIDERS: Family Provider Family Medicine; PCP Family Medicine; Visit Provider Nurse Practitioner Family | DX: B99.9 Unspecified infectious disease (principal) | CPT/HCPCS: 87070; 87075; 87205 ==

== ENCOUNTER 2023-04-01 13:07 | Emergency (ER) | payer MEDICARE, OTHER, SELFPAY ==
[2023-04-01] VITALS (8 sets, daily range): BP systolic 113–147; BP diastolic 56–77; PULSE 53–64; RESP 18–26; TEMP 36.3; O2SAT 98–100; BMI 27.3
--- NOTE | 2023-04-01 13:53 | DI.RAD.S_ITS ---
PROCEDURE: XR HAND RT MIN 3V INDICATIONS: eval FB prox middle finger volar aspect TECHNIQUE: 3 views of the hand(s) acquired. COMPARISON: [facility], CR, HAND MIN 3VW (RT), 02/20/2015, 10:50. FINDINGS: Bones: No fractures or dislocations. Carpal bones are normally aligned. No suspicious bony lesions. Generalized degenerative changes are seen, which are overall worst involving the 1st carpometacarpal joint. Soft tissues: Soft tissue swelling is seen of the 3rd finger, yet without a radiopaque foreign body seen. IMPRESSION: Negative for radiopaque foreign body. Third finger soft tissue swelling can be seen. Dictated by: Rishi Taylor M.D. on 04/01/2023 at 14:39 Approved by: Rishi Taylor M.D. on 04/01/2023 at 14:40
--- NOTE | 2023-04-01 13:53 | ED.SKABFB ---
HPI - Skin/Abscess/Foreign Bdy General Chief complaint: Skin/Abscess/Foreign Body Stated complaint: infection in finger Time Seen by Provider: 04/01/23 13:40 Source: patient Mode of arrival: Ambulatory Limitations: no limitations History of Present Illness HPI narrative: Patient is a 78-year-old male who several days ago sustained an injury to his right middle finger when he states that he injured it on a piece of plywood. He has been evaluated at the walk-in clinic and was given a prescription for doxycycline and also mupirocin. No imaging studies have been performed. He states that the redness has been getting worse and then within the past 24 hours a piece of the wood came out of his finger and then it started to drain. He is redness and discomfort to his right hand specifically at the base of his right middle finger. Related Data Home Medications Medication Instructions Recorded Confirmed insulin aspart U-100 100 unit/mL 1 dose continuous subcutaneous 01/24/18 02/09/23 subcutaneous solution infusion DIRECTED rosuvastatin 20 mg tablet 20 mg PO DAILY 01/24/18 02/09/23 bisoprolol fumarate 5 mg tablet 5 mg PO DAILY 02/09/23 02/09/23 clopidogrel 75 mg tablet (Plavix) 75 mg PO DAILY 02/09/23 02/09/23 nitroglycerin 0.4 mg sublingual 0.4 mg sublingual Q5M PRN 02/09/23 02/09/23 tablet ranolazine 500 mg tablet,extended 500 mg PO BID 02/09/23 02/09/23 release,12 hr valsartan 40 mg tablet 40 mg PO BID 02/09/23 02/09/23 Previous Rx's Medication Instructions Recorded doxycycline hyclate 100 mg capsule 100 mg PO BID #14 caps 03/29/23 mupirocin 2 % topical ointment 1 applic topical TID #15 grams 03/29/23 Allergies Allergy/AdvReac Type Severity Reaction Status Date / Time No Known Drug Allergies Allergy Verified 02/09/23 12:14 Review of Systems Constitutional Constitutional: Reports system reviewed and no additional complaints, except as documented Musculoskeletal Musculoskeletal: Reports system reviewed and no additional complaints, except as documented Integumentary/Breasts Skin/Breast: Reports system reviewed and no additional complaints, except as documented Neurologic Neurologic: Reports system reviewed and no additional complaints, except as documented Patient History Social History Smoking Status: Never smoker Smoking Status: Never smoker Substance Use Type: marijuana Exam Initial Vital Signs Initial Vital Signs: Vital Signs Temperature 97.4 F L 04/01/23 13:15 Pulse Rate 64 04/01/23 13:15 Respiratory Rate 18 04/01/23 13:15 Blood Pressure 147/68 H 04/01/23 13:15 Pulse Oximetry 100 04/01/23 13:15 Oxygen Delivery Method Room Air 04/01/23 13:15 Cardio Pulses: radial pulses present on the right Skin Other: Patient with redness of the right hand specifically the volar aspect between the MCP and PIP joint of the right middle finger. There is a small cut in the skin here with purulent drainage. The redness does extend to the palm of the hand. There is also some redness on the dorsal aspect of the right middle finger as well. Neuro Sensory Exam: no sensory deficits noted Extrem Other: Redness and swelling to the proximal aspect of the right middle finger. Procedures Abscess I/D I&D #1: Site: other (Middle finger) Side (if applicable): right Local Anesthetic: lidocaine 1% Amount of anesthesia used (mL): 2 Technique: incised with #11 blade Irrigation: No Packing used?: none Course Orders Ordered: ED Orders 04/01/23 13:53 XR hand RT min 3V Stat 04/01/23 15:11 Wound Culture and Gram Stain Stat Discontinued Medications Lidocaine HCl (Lidocaine 2% Inj Mdv 20ml) 20 ml INJ INTRA-OP ONE Stop: 04/01/23 14:19 Last Admin: 04/01/23 14:35 Dose: Not Given Documented By: RB Lidocaine HCl (Lidocaine 1% (Pf) 2ml) 2 ml INJ INTRA-OP ONE Stop: 04/01/23 14:46 Last Admin: 04/01/23 14:36 Dose: 2 ml Documented By: GISELLA Vital Signs Vital signs: Vital Signs - 8 hr 04/01/23 13:15 04/01/23 13:26 04/01/23 13:33 Temperature 97.4 F L Pulse Rate 64 Respiratory Rate 18 Blood Pressure 147/68 H 120/58 L Pulse Oximetry 100 99 Oxygen Delivery Method Room Air 04/01/23 13:34 04/01/23 13:34 04/01/23 14:00 Temperature Pulse Rate 62 58 L Respiratory Rate 24 Blood Pressure 126/77 Pulse Oximetry 100 99 Oxygen Delivery Method 04/01/23 14:01 04/01/23 14:01 04/01/23 14:30 Temperature Pulse Rate 57 L Respiratory Rate 26 H Blood Pressure 113/56 L 115/61 Pulse Oximetry 99 Oxygen Delivery Method 04/01/23 14:30 04/01/23 15:00 04/01/23 15:00 Temperature Pulse Rate 54 L 53 L Respiratory Rate 23 23 Blood Pressure 120/63 Pulse Oximetry 98 98 Oxygen Delivery Method MDM - Skin/Abscess/Foreign Bdy Imaging Data Extremity x-ray #1: Radiologist's Impression: PROCEDURE:? XR HAND RT MIN 3V ? INDICATIONS:? eval FB prox middle finger volar aspect ? TECHNIQUE:? 3 views of the hand(s) acquired.? ? COMPARISON:? [facility], , HAND MIN 3VW (RT), 02/20/2015, 10:50. ? FINDINGS:? ? Bones:? No fractures or dislocations.? Carpal bones are normally aligned.? No suspicious bony lesions.? Generalized degenerative changes are seen, which are overall worst involving the 1st carpometacarpal joint. ? Soft tissues:? Soft tissue swelling is seen of the 3rd finger, yet without a radiopaque foreign body seen. ? ? IMPRESSION:? Negative for radiopaque foreign body. ? Third finger soft tissue swelling can be seen. [facility] Narrative Medical decision making narrative: Patient does have an obvious cellulitis of his finger. Low suspicion for flexor tenosynovitis. There was a piece of wood foreign body that expressed itself that they removed. He is currently on doxycycline. I did culture the purulent material that was coming from the wound today. I did perform a small incision and drainage and a did get more purulent material out from this area. X-ray shows no further foreign body. Will have him continue with the doxycycline. He was given return precautions. He expressed understanding and agreement. Discharge Plan Departure Patient Disposition: Home Clinical Impression: Abscess Instructions: DI for Skin Abscess Activity Restrictions/Additional Instructions: Would continue to take the doxycycline as directed. I expect continued oozing from the wound especially since we enlarged the opening today. You can wash your hands like normal like we discussed. Return to the emergency department for new or worsening symptoms. Prescriptions: No Action doxycycline hyclate 100 mg capsule 100 mg PO BID Qty: 14 0RF mupirocin 2 % ointment 1 applic topical TID Qty: 15 0RF clopidogrel [Plavix] 75 mg tablet 75 mg PO DAILY bisoprolol fumarate 5 mg tablet 5 mg PO DAILY valsartan 40 mg tablet 40 mg PO BID ranolazine 500 mg tablet extended release 12 hr 500 mg PO BID nitroglycerin 0.4 mg tablet, sublingual 0.4 mg sublingual Q5M PRN Rx Instructions: do not exceed 3 doses per episode insulin aspart U-100 [Novolog U-100 Insulin aspart] 100 unit/mL solution 1 dose Continuous Subcutaneous Infusion DIRECTED MDD 100 units Patient Comments: INJECT UP TO 100 UNITS SC QD VIA INSULIN PUMP UTD rosuvastatin 20 mg tablet 20 mg PO DAILY Referrals: Carlos Fountain MD [Primary Care Provider] - Stand Alone Forms: Patient Portal/API
[2023-04-01] MEDS: LIDOCAINE 1% (PF) 2ML 2 ML INJ (14:36)
== END 2023-04-01 15:25 | disposition home or self-care (01) ==
PROVIDERS: Emergency Provider Emergency Medicine; Family Provider Family Medicine; PCP Family Medicine
DX: L02.511 Cutaneous abscess of right hand (principal); Z79.899 Other long term (current) drug therapy
CPT/HCPCS: 10060; 73130; 87070; 87075; 87077; 87205; 99283

== ENCOUNTER 2023-11-09 15:50 | Emergency (ER) | payer MEDICARE, OTHER, SELFPAY ==
[2023-11-09 16:15] VITALS: BP 150/74; PULSE 78; RESP 17; TEMP 36.6; O2SAT 98; BMI 26.6
--- NOTE | 2023-11-09 16:28 | DI.CT.S_ITS ---
PROCEDURE: CT HEAD/BRAIN WO CON INDICATIONS: head injury on plavix TECHNIQUE: Noncontrast 4.5 mm thick angled axial sections acquired from the foramen magnum to the vertex, with coronal and sagittal reformats. For radiation dose reduction, the following was used: automated exposure control, adjustment of mA and/or kV according to patient size. COMPARISON: None. FINDINGS: Image quality: Diagnostic. CSF spaces: Basal cisterns are patent. No extra-axial fluid collections. The ventricles are symmetric in size and shape. Suspected arachnoid cyst overlying the right cerebral convexity. Brain: No intracranial bleeds or masses. There is cerebral volume loss for age, with resultant ventricular and sulcal prominence. There are periventricular and deep white matter chronic small vessel ischemic changes. There is intracranial internal carotid artery atherosclerosis. Skull and face: Calvarium and visualized facial bones appear intact, without suspicious lesions. Scalloping of the right calvarium overlying the suspected arachnoid cyst. Sinuses: Visualized sinuses and mastoids are clear. IMPRESSION: No acute intracranial pathology. Dictated by: Timmy Norman M.D. on 11/09/2023 at 16:52 Approved by: Timmy Norman M.D. on 11/09/2023 at 16:54
--- NOTE | 2023-11-09 16:31 | DI.CT.S_ITS ---
PROCEDURE: CT CERVICAL SPINE WO CON INDICATIONS: fall TECHNIQUE: Noncontrast 3 mm thick sections acquired from the skull base to the T4 level. Sagittal and coronal reformats were then constructed. For radiation dose reduction, the following was used: automated exposure control, adjustment of mA and/or kV according to patient size. COMPARISON: None. FINDINGS: Image quality: Excellent. Bones: No fractures or dislocations. Visualized superior ribs are intact. Mild, multilevel degenerative disc disease and moderate, multilevel facet arthrosis. No severe spinal canal narrowing. Soft tissues: Prevertebral soft tissues are normal in thickness. No paravertebral hematomas. No apical pneumothoraces. IMPRESSION: No displaced fracture or traumatic subluxation. Dictated by: Timmy Norman M.D. on 11/09/2023 at 16:54 Approved by: Timmy Norman M.D. on 11/09/2023 at 16:55
--- NOTE | 2023-11-09 16:50 | PC.NURSE ---
Pt at bedside in wheelchair, assisted into bed. He denies dizziness/lightheaded and is laughing, stating he did not want to come to the ER, but his made him come. Pt has an insuln pump and CGM.
--- NOTE | 2023-11-09 17:01 | ED_ITS ---
HPI - General Adult General Chief complaint: Trauma Stated complaint: head injury s/p fall off porch Time Seen by Provider: 11/09/23 16:32 Source: patient Mode of arrival: Ambulatory History of Present Illness HPI narrative: Patient is a 78-year-old male. He is on Plavix. Fell and hit his head after tripping on his porch. There was no loss of consciousness. He did sustain a cut to his right arm. 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 Prior to falling he did not have chest pain no shortness of breath. He reports no extremity injuries. No neck pain. Patient was classified as modified trauma Related Data Home Medications Medication Instructions Recorded Confirmed insulin aspart U-100 100 unit/mL 1 dose continuous subcutaneous 01/24/18 02/09/23 subcutaneous solution infusion DIRECTED rosuvastatin 20 mg tablet 20 mg PO DAILY 01/24/18 02/09/23 bisoprolol fumarate 5 mg tablet 5 mg PO DAILY 02/09/23 02/09/23 clopidogrel 75 mg tablet (Plavix) 75 mg PO DAILY 02/09/23 02/09/23 nitroglycerin 0.4 mg sublingual 0.4 mg sublingual Q5M PRN 02/09/23 02/09/23 tablet ranolazine 500 mg tablet,extended 500 mg PO BID 02/09/23 02/09/23 release,12 hr valsartan 40 mg tablet 40 mg PO BID 02/09/23 02/09/23 Previous Rx's Medication Instructions Recorded doxycycline hyclate 100 mg capsule 100 mg PO BID #14 caps 03/29/23 mupirocin 2 % topical ointment 1 applic topical TID #15 grams 03/29/23 Allergies Allergy/AdvReac Type Severity Reaction Status Date / Time No Known Drug Allergies Allergy Verified 11/09/23 16:24 Review of Systems Constitutional Constitutional: Reports system reviewed and no additional complaints, except as documented Musculoskeletal Musculoskeletal: Reports system reviewed and no additional complaints, except as documented Integumentary/Breasts Skin/Breast: Reports system reviewed and no additional complaints, except as documented Neurologic Neurologic: Reports system reviewed and no additional complaints, except as documented Hematologic/Lymphatic Comments: Patient is on Plavix Patient History Social History Smoking Status: Never smoker Smoking Status: Never smoker alcohol intake frequency: other Substance Use Type: marijuana Exam Initial Vital Signs Initial Vital Signs: Vital Signs Temperature 98 F 11/09/23 16:15 Pulse Rate 78 11/09/23 16:15 Respiratory Rate 17 11/09/23 16:15 Blood Pressure 150/74 H 11/09/23 16:15 Pulse Oximetry 98 11/09/23 16:15 Oxygen Delivery Method Room Air 11/09/23 16:15 Const General: cooperative, comfortable and No ill appearing [facility] Head: normocephalic and abrasion Resp Effort & Inspection: normal respiratory effort Cardio Rate: regular rate Skin Other: 2 cm laceration on the thenar eminence of the right hand. Neuro General: patient alert, patient awake and patient oriented x3 Extrem Other: Pelvis stable. Full range motion of upper and lower extremities. Procedures Laceration Repair Laceration 1: Site: hand Side (If applicable): right Size (cm): 2 Description: linear Depth: simple, single layer Local Anesthetic: lidocaine 1% Amount of anesthesia used (mL): 3 Pre-repair: wound explored, irrigated extensively and deep structures intact Skin layer closed with: nylon Skin layer suture size: 4-0 Number of sutures: 5 Technique: simple, interrupted Scores GCS Elaine coma scale eye opening: Spontaneous Elaine coma scale verbal response: Orientated Didi coma scale motor response: Obey commands Elaine coma scale total score: 15 Course Orders Ordered: ED Orders 11/09/23 16:28 CT head/brain wo con Stat 11/09/23 16:31 CT cervical spine wo con Stat Vital Signs Vital signs: Vital Signs - 8 hr 11/09/23 16:15 Temperature 98 F Pulse Rate 78 Respiratory Rate 17 Blood Pressure 150/74 H Pulse Oximetry 98 Oxygen Delivery Method Room Air Medical Decision Making Imaging Data CT scan - head: Radiologist's Impression: PROCEDURE: CT HEAD/BRAIN WO CON INDICATIONS: head injury on plavix TECHNIQUE: Noncontrast 4.5 mm thick angled axial sections acquired from the foramen magnum to the vertex, with coronal and sagittal reformats. For radiation dose reduction, the following was used: automated exposure control, adjustment of mA and/or kV according to patient size. COMPARISON: None. FINDINGS: Image quality: Diagnostic. CSF spaces: Basal cisterns are patent. No extra-axial fluid collections. The ventricles are symmetric in size and shape. Suspected arachnoid cyst overlying the right cerebral convexity. Brain: No intracranial bleeds or masses. There is cerebral volume loss for age, with resultant ventricular and sulcal prominence. There are periventricular and deep white matter chronic small vessel ischemic changes. There is intracranial internal carotid artery atherosclerosis. Skull and face: Calvarium and visualized facial bones appear intact, without suspicious lesions. Scalloping of the right calvarium overlying the suspected arachnoid cyst. Sinuses: Visualized sinuses and mastoids are clear. IMPRESSION: No acute intracranial pathology. CT - cervical spine: Radiologist's Impression: PROCEDURE: CT CERVICAL SPINE WO CON INDICATIONS: fall TECHNIQUE: Noncontrast 3 mm thick sections acquired from the skull base to the T4 level. Sagittal and coronal reformats were then constructed. For radiation dose reduction, the following was used: automated exposure control, adjustment of mA and/or kV according to patient size. COMPARISON: None. FINDINGS: Image quality: Excellent. Bones: No fractures or dislocations. Visualized superior ribs are intact. Mild, multilevel degenerative disc disease and moderate, multilevel facet arthrosis. No severe spinal canal narrowing. Soft tissues: Prevertebral soft tissues are normal in thickness. No paravertebral hematomas. No apical pneumothoraces. IMPRESSION: No displaced fracture or traumatic subluxation. MDM Narrative Medical decision making narrative: Patient is on Plavix. Head CT and cervical spine CT unremarkable. The laceration to the right hand was closed as described above. Patient reports no other injuries from the event. Will discharge patient home with care instructions and return precautions. He expressed understanding and agreement with plan Discharge Plan Departure Patient Disposition: Home Clinical Impression: Closed head injury, Abrasion of skin, Laceration of skin Instructions: DI for Laceration Repair -- Simple Activity Restrictions/Additional Instructions: The stitches that were placed today do need to be removed in 7-10 days. This can be done either your primary doctor or the walk-in clinic. Until then you can cover the area with antibiotic ointment. You can wash your hands like normal. You can eat and sleep like normal and take the rest of your medications as directed. Return to the emergency department for new symptoms. Prescriptions: No Action doxycycline hyclate 100 mg capsule 100 mg PO BID Qty: 14 0RF mupirocin 2 % ointment 1 applic topical TID Qty: 15 0RF clopidogrel [Plavix] 75 mg tablet 75 mg PO DAILY bisoprolol fumarate 5 mg tablet 5 mg PO DAILY valsartan 40 mg tablet 40 mg PO BID ranolazine 500 mg tablet extended release 12 hr 500 mg PO BID nitroglycerin 0.4 mg tablet, sublingual 0.4 mg sublingual Q5M PRN Rx Instructions: do not exceed 3 doses per episode insulin aspart U-100 [Novolog U-100 Insulin aspart] 100 unit/mL solution 1 dose Continuous Subcutaneous Infusion DIRECTED MDD 100 units Patient Comments: INJECT UP TO 100 UNITS SC QD VIA INSULIN PUMP UTD rosuvastatin 20 mg tablet 20 mg PO DAILY Referrals: Carlos Fountain MD [Primary Care Provider] - Stand Alone Forms: Patient Portal/API
--- NOTE | 2023-11-09 17:05 | PC.NURSE ---
Pt tolerated cleansing wounds with warm, soapy water.
[2023-11-09 17:32] VITALS: PULSE 50; RESP 16; O2SAT 95
[2023-11-09 17:33] VITALS: BP 153/72; PULSE 54; RESP 18; O2SAT 98
[2023-11-09] MEDS: BACITRACIN OINT 0.9 GM PCKT 1 APPLIC TOP (17:38)
[2023-11-09 17:45] VITALS: BP 137/71; PULSE 58; O2SAT 97
== END 2023-11-09 18:01 | disposition home or self-care (01) ==
PROVIDERS: Emergency Provider Emergency Medicine; Family Provider Family Medicine; PCP Family Medicine
DX: S09.90XA Unspecified injury of head, initial encounter (principal); S41.111A Laceration without foreign body of right upper arm, initial encounter; S00.01XA Abrasion of scalp, initial encounter; W01.0XXA Fall on same level from slipping, tripping and stumbling without subsequent striking against object, initial encounter; Z79.01 Long term (current) use of anticoagulants
CPT/HCPCS: 12001; 70450; 72125; 99284

== ENCOUNTER → 2024-04-26 16:02 | Outpatient (CLI) | payer MEDICARE, OTHER, SELFPAY ==
--- NOTE | 2024-04-26 16:06 | DI.RAD.S_ITS ---
PROCEDURE: XR TOE RT MIN 2V INDICATIONS: Toe infection TECHNIQUE: 3 views of the 1st toe(s) acquired. COMPARISON: None. FINDINGS: Bones: No fractures or dislocations. No suspicious bony lesions. Soft tissues: No suspicious soft tissue densities. IMPRESSION: Small vessel atherosclerotic vascular calcification without osseous lytic lesion Old healing avulsion fracture, base of the 5th metatarsal Approved by: Carlos Wilson M.D. on 04/30/2024 at 18:06
== END ==
PROVIDERS: Family Provider Family Medicine; PCP Family Medicine; Referring Provider Nurse Practitioner Family; Visit Provider Nurse Practitioner Family
DX: L08.9 Local infection of the skin and subcutaneous tissue, unspecified (principal); S92.351D Displaced fracture of fifth metatarsal bone, right foot, subsequent encounter for fracture with routine healing
CPT/HCPCS: 73660